=== PATIENT | male | born 1965 | race Caucasian/White ===

== ENCOUNTER 2017-12-30 09:12 | Emergency (ER) | payer MEDICAID ==
[~2017-12-30] VITALS: Ht 182.9 cm; Wt 79.0 kg
[2017-12-30 09:19] VITALS: BP 116/80; PULSE 85; RESP 16; TEMP 97.8; O2SAT 98
--- NOTE | 2017-12-30 10:31 | PD ---
HPI Chief Complaint: Cold / Flu Symptoms Time Seen by Provider: 09:49 Travel History International Travel<30 days: No Contact w/Intl Traveler<30days: No Traveled to known affect area: No History of Present Illness HPI 52-year-old male presents to the emergency room for evaluation of body aches, rhinorrhea, and mild nonproductive cough for the past 2 days. He has been taking nial-koo-fznqpkr cough and cold medication and Tylenol/Motrin for pain. States body aches are severe and he has not felt this way in a long time. He is hoping for something that will help decrease his symptoms. Denies any objective fevers. No chronic medical conditions or daily medications. PFSH Past Medical History Medical History: Denies Significant Hx Influenza Vaccination: No Past Surgical History Surgical History: No Previous Surgery Social History Alcohol Use: Yes ("couple times per week") Tobacco Use: Yes (1PPD) Substance Use: No Allergies-Medications (Allergen,Severity, Reaction): Coded Allergies: No Known Allergies (Unverified , 12/30/17) Reported Meds & Prescriptions Reported Meds & Active Scripts Active No Active Prescriptions or Reported Medications Review of Systems Except as stated in HPI: all other systems reviewed are Neg Physical Exam Narrative GENERAL: Well-nourished, well-developed male in no acute distress. Afebrile. Ambulatory. SKIN: Focused skin assessment warm/dry. HEAD: Normocephalic. EYES: No scleral icterus. No injection or drainage. ENT: Mucosa pink and moist. Mild erythema without exudates. No uvular edema. No uvular, palatal, or tonsillar deviation. Airway patent. Nasal turbinates appear normal without nasal blood, purulent drainage or septal hematoma. EARS: Bilateral pinnae and external canals appear within normal limits. Bilateral tympanic membranes without erythema, dullness or perforation. NECK: Supple, trachea midline. No JVD or lymphadenopathy. CARDIOVASCULAR: Regular rate and rhythm without murmurs, gallops, or rubs. RESPIRATORY: Breath sounds equal bilaterally. No accessory muscle use. No crackles, rales, wheezes, or rhonchi. Data Data Last Documented VS Vital Signs Date Time Temp Pulse Resp B/P (MAP) Pulse Ox O2 Delivery O2 Flow Rate FiO2 12/30/17 09:19 97.8 85 16 116/80 (92) 98 Orders Orders Influenzae A/B Antigen (12/30/17 10:12) [facility] Medical Decision Making Medical Screen Exam Complete: Yes Emergency Medical Condition: Yes Medical Record Reviewed: Yes Differential Diagnosis URI, pneumonia, flu, bronchitis Narrative Course 52-year-old otherwise healthy male presents to the emergency room for evaluation of severe body aches for the past 2 days. No history of fever. He has associated cough and congestion. Physical exam is reassuring. Vital signs stable. There is mild erythema of the pharynx. Lung sounds are clear and equal bilaterally. Rapid influenza is positive. Patient discharged with prescription for Tamiflu and told to follow-up with a primary care physician or return for worsening symptoms. He understands and agrees to plan. Diagnosis Primary Impression: Influenza A Referrals: Primary Care Physician Additional Instructions: Tamiflu as directed, until gone. Continue [id number]-udbluyo topical medications for symptoms. Follow-up with primary care physician. Return for worsening symptoms. Med/Other Pt SpecificInfo: Prescription(s) given Scripts Oseltamivir (Tamiflu) 75 Mg Cap 75 MG PO BID for Mgmt Viral Infection for 5 Days, #10 CAP 0 Refills Prov: Lindsay Lopez MD 12/30/17 Disposition: DISCHARGE HOME Condition: Stable Maggy Tariq Dec 30, 2017 10:31
[2017-12-30] MEDS ORDERED: OSEL75 PO (11:02)
== END 2017-12-30 11:12 | disposition home or self-care (01) ==
LOC: PHEFT 09:12
DX: J09.X2 Influenza due to identified novel influenza A virus with other respiratory manifestations (principal); F17.210 Nicotine dependence, cigarettes, uncomplicated
CPT/HCPCS: 87804; 99283